=== PATIENT | male | born 2000 | race African-American/Black ===

== ENCOUNTER 2023-12-23 08:48 | Emergency (ER) | payer MEDICAID ==
[~2023-12-23] VITALS: Ht 170.2 cm; Wt 62.8 kg
[2023-12-23 09:29] VITALS: BP 100/81; PULSE 129; RESP 16; O2SAT 96
== END 2023-12-23 10:00 | disposition left against medical advice (07) ==
LOC: ER 08:48 → EDBD 08:48 → ER 10:00
DX: R25.1 Tremor, unspecified (principal); Z53.21 Procedure and treatment not carried out due to patient leaving prior to being seen by health care provider